=== PATIENT | female | born 1995 | race Caucasian/White ===

== ENCOUNTER 2021-02-25 08:07 | Emergency (ER) | payer BC ==
[2021-02-25] MEDS ORDERED: Sodium Chloride 0.9% 10 ML Syringe FLUSH PRN (08:19)
--- NOTE | 2021-02-25 08:55 | CT ---
[id number] CT/CT Head Stroke Protocol EXAM: CT Head Stroke Protocol CLINICAL DATA: STROKE CODE, RIGHT FACIAL TINGLING. COMPARISON STUDY: None FINDINGS: No intracranial hemorrhage, extra-axial fluid collection, mass, or acute ischemia. Soft tissues are unremarkable. Paranasal sinuses and mastoid air cells are clear. IMPRESSION: No acute intracranial findings. Manuel Paez DO 02/25/21 0854 Thank you for allowing us to participate in the care of your patient.
[2021-02-25 08:58] LABS: PTT,PARTIAL THROMBOPLSTIN TIME 20.2 SEC (25.6-32.8)
[2021-02-25 09:02] LABS: CHLORIDE,CL 107 mmol/L (98-107); SODIUM,NA 140 mmol/L (136-145)
[2021-02-25 09:04] LABS: ANION GAP 13.3 mmol/L (5-15)
[2021-02-25] MEDS ORDERED: predniSONE 20 MG Tab PO ONE (09:17)
--- NOTE | 2021-02-25 09:21 | EDM.PDOC ---
ED HPI GENERAL MEDICAL PROBLEM - General Stated Complaint: R SIDE FACE DROOPING Time Seen by Provider: 02/25/21 08:19 Source of Information: Reports: Patient - History of Present Illness INITIAL COMMENTS - FREE TEXT/NARRATIVE: Karl is a 25 y/o female who comes to the ER with complaints of right sided facial weakness/tingling that started [id number] hours ago. He right eye has been watering slightly. No problems with gait or speech. Denies any headache or dizziness. Stroke code called by staff on patient's arrival. - Related Data Home Meds: Home Meds predniSONE [Prednisone] 60 mg PO DAILY #18 tablet 02/25/21 [Rx] Review of Systems - Review of Systems Review Of Systems: See Below Eyes: Reports: Other (right eye tearing) Ears: Reports: No Symptoms Nose: Reports: No Symptoms Mouth/Throat: Reports: No Symptoms Respiratory: Reports: No Symptoms Cardiovascular: Reports: No Symptoms GI/Abdominal: Reports: No Symptoms Genitourinary: Reports: No Symptoms Musculoskeletal: Reports: No Symptoms Skin: Reports: No Symptoms Neurological: Reports: No Symptoms Psychiatric: Reports: No Symptoms ED EXAM, GENERAL - Physical Exam Exam: See Below Exam Limited By: No Limitations General Appearance: Alert, WD/WN, No Apparent Distress (Adult female) Eye Exam: Right Eye: Other (note mild drooping of eyelid with tearing), Bilateral Eye: EOMI, PERRL Ears: Normal External Exam, Normal Canal, Hearing Grossly Normal, Normal TMs Nose: Normal Inspection, Normal Mucosa Throat/Mouth: Normal Inspection, Normal Lips, Normal Voice, Other (Mild droop in her lips with smiling) Head: Atraumatic, Normocephalic Neck: Normal Inspection, Supple, Non-Tender Respiratory/Chest: No Respiratory Distress, Lungs Clear, Chest Non-Tender Cardiovascular: Normal Peripheral Pulses, Regular Rate, Rhythm, No Murmur GI/Abdominal: Normal Bowel Sounds, Soft, Non-Tender (Female) Exam: Deferred Rectal (Female) Exam: Deferred Back Exam: Normal Inspection, Full Range of Motion Extremities: Normal Inspection, Normal Range of Motion, Normal Capillary Refill Neurological: Alert, Oriented, CN II-XII Intact, Normal Cognition, No Motor/Sensory Deficits Psychiatric: Normal Affect, Normal Mood Skin Exam: Warm, Dry, Intact, Normal Color, No Rash Lymphatic: No Adenopathy Course - Vital Signs Text/Narrative:: 0819 The patient was seen by the [facility] ASSISTANT. CT was done as stroke code called. Labs and EKG done. CT Head WO=negative. Labs reviewed. CBC neg, CMP AST=42, ALT=79, Troponin I=4. NIHSS=1, facial droop. Low risk for CVA. 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 She was given Prednisone 60mg po in the ER. Written instructions were given and she left the ER in stable condition. - Orders/Labs/Meds Orders: Active Orders 24 hr Category Date Time Status EKG Documentation Completion [RC] STAT Care 02/25/21 08:19 Active Sodium Chloride 0.9% [Saline Flush] Med 02/25/21 08:19 Active 10 ml FLUSH ASDIRECTED PRN Saline Lock Insert [OM.PC] Stat Oth 02/25/21 08:19 Ordered Medication Orders Sodium Chloride (Sodium Chloride 0.9% 10 Ml Syringe) 10 ml FLUSH ASDIRECTED PRN PRN Reason: Keep Vein Open Labs: Laboratory Tests 02/25/21 02/25/21 02/25/21 Range/Units 08:26 08:26 08:40 WBC 6.6 (4.0-10.0) x10^3/uL RBC 4.55 (4.00-5.50) x10^6/uL Hgb 14.7 (12.0-16.0) g/dL Hct 42.4 (33.0-47.0) % MCV 93.2 H (78.0-93.0) fL MCH 32.3 H (26.0-32.0) pg MCHC 34.7 (32.0-36.0) g/dL RDW Coeff of Inocente 12.3 (10.0-15.0) % Plt Count 188 (130-400) x10^3/uL Neut % (Auto) 61.2 (50.0-80.0) % Lymph % (Auto) 26.8 (25.0-50.0) % [place] % (Auto) 9.2 (2.0-11.0) % Eos % (Auto) 2.3 (0.0-4.0) % Baso % (Auto) 0.5 (0.2-1.2) % PT 9.1 L (9.9-12.5) SEC INR 0.8 L (2.0-3.5) APTT 20.2 L (25.6-32.8) SEC Sodium 140 (136-145) mmol/L Potassium 4.3 (3.5-5.1) mmol/L Chloride 107 (98-107) mmol/L Carbon Dioxide 24 (21-32) mmol/L Anion Gap 13.3 (5-15) mmol/L BUN 17 (7-18) mg/dL Creatinine 0.9 (0.55-1.02) mg/dL Est Cr Clr Drug Dosing TNP Estimated GFR (MDRD) > 60 Glucose 92 (70-99) mg/dL Calcium 8.9 (8.5-10.1) mg/dL Corrected Calcium 9.3 (8.5-10.1) mg/dL Magnesium 2.0 (1.8-2.4) mg/dL Total Bilirubin 0.2 (0.2-1.0) mg/dL AST 42 H (15-37) U/L ALT 79 H (14-59) U/L Alkaline Phosphatase 116 (46-116) U/L Troponin I High Sens 4 (<=51) ng/L Total Protein 7.4 (6.4-8.2) g/dL Albumin 3.5 (3.4-5.0) g/dL Globulin 3.9 Albumin/Globulin Ratio 0.90 Meds: Medications Generic Name Dose Route Start Last Admin Trade Name Freq PRN Reason Stop Dose Admin Sodium Chloride 10 ml 02/25/21 08:19 Sodium Chloride 0.9% 10 Ml Syringe FLUSH ASDIRECTED PRN Keep Vein Open Discontinued Medications Generic Name Dose Route Start Last Admin Trade Name Freq PRN Reason Stop Dose Admin Prednisone 60 mg 02/25/21 09:17 02/25/21 09:30 Prednisone 20 Mg Tab PO 02/25/21 09:18 60 mg ONETIME ONE Administration Departure - Departure Time of Disposition: 09:15 Disposition: Home, Self-Care 01 Condition: Good Clinical Impression: Novak's palsy, Liver 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 Can obtain these over the counter. -Use the eye patches as needed, but for sure at night or when you sleep. -See the patient education on Novak's Palsy -Your LFTs were mildly elevated today. Just be aware of this and mention to a future PCP. These liver function tests can eleavate mildly due to an illness, alcohol use, or medications that you may have taken. -If symptoms persist or gets worse, follow up with a PCP for consideration of antiviral meds. -Return to the ER for any concerns that you have. - My Orders Last 24 Hours: My Active Orders 02/25/21 08:19 EKG Documentation Completion [RC] STAT Sodium Chloride 0.9% [Saline Flush] 10 ml FLUSH ASDIRECTED PRN Saline Lock Insert [OM.PC] Stat - Assessment/Plan Last 24 Hours: My Active Orders 02/25/21 08:19 EKG Documentation Completion [RC] STAT Sodium Chloride 0.9% [Saline Flush] 10 ml FLUSH ASDIRECTED PRN Saline Lock Insert [OM.PC] Stat Assessment:: 1)Novak's Palsy 2)Mildly Elevated LFTs Plan: As above
== END 2021-02-25 09:30 | disposition home or self-care (01) ==
LOC: VM.ED 08:07
DX: G51.0 Bell's palsy (principal); R79.89 Other specified abnormal findings of blood chemistry
CPT/HCPCS: 36415; 70450; 80053; 83735; 84484; 85025; 85610; 85730; 93005; 99284; 99285-25; J7512